=== PATIENT | male | born 1995 | race Caucasian/White ===

== ENCOUNTER 2017-09-16 22:27 | Emergency (ER) | payer OTHER ==
[~2017-09-16] VITALS: Ht 188 cm; Wt 83.9 kg
[~2017-09-16 22:27] MED LIST: APAP/CODEINE ELI5 M1 OR; FLONASE 0.05%50 MCG NS; IBUPROFEN 600600 M1 PO; LORATIDINE 10 M10 M1 PO; NOHOMEMEDICATIONS; POLYMYXIN B/TMP10 ML OP
[2017-09-16 23:25] VITALS: BP 126/66
== END 2017-09-16 23:25 | disposition home or self-care (01) ==
LOC: M.ERS 22:27
DX: S93.491A Sprain of other ligament of right ankle, initial encounter (principal); X50.1XXA Overexertion from prolonged static or awkward postures, initial encounter; Y93.67 Activity, basketball; Y92.89 Other specified places as the place of occurrence of the external cause; Y99.8 Other external cause status